=== PATIENT | female | born 1990 | race Two or more races ===

== ENCOUNTER 2022-06-17 05:48 | Day surgery (SDC) | payer OTHER ==
[~2022-06-17] VITALS: Ht 180.3 cm; Wt 78.5 kg
[~2022-06-17 05:48] MED LIST: PEPCID AC20 MG PO; PRENATAL + DHA1 EAC1 PO; PRENATAL TABLE1 EAC4 PO
== END 2022-06-17 12:20 | disposition home or self-care (01) ==
LOC: CIR.AMB 05:48
PROVIDERS: ATTEND Specialist
DX: K80.10 Calculus of gallbladder with chronic cholecystitis without obstruction (principal); R59.0 Localized enlarged lymph nodes; Z20.822 Contact with and (suspected) exposure to COVID-19; Z88.6 Allergy status to analgesic agent; Z91.010 Allergy to peanuts

== ENCOUNTER 2022-06-17 14:54 | Emergency (ER) | payer OTHER ==
[~2022-06-17] VITALS: Ht 180.3 cm; Wt 78.5 kg
== END 2022-06-17 18:25 | disposition home or self-care (01) ==
LOC: ER 14:54
DX: T78.49XA Other allergy, initial encounter (principal)